=== PATIENT | female | born 1985 | race Caucasian/White ===

== ENCOUNTER 2018-12-03 09:24 | Emergency (ER) | payer OTHER, MEDICAID, SELFPAY ==
[2018-12-03 09:42] VITALS: BP 118/72; PULSE 90; RESP 12; TEMP 36.6; O2SAT 100
--- NOTE | 2018-12-03 09:58 | ED_ITS ---
HPI - Abdominal Pain General Chief Complaint: Abdominal Pain Stated Complaint: 99% sure has a stomach ulcer Time Seen by Provider: 12/03/18 09:32 Source: patient Mode of arrival: Ambulatory History of Present Illness HPI narrative: Patient is a 33-year-old female who presents with ?I have a stomach ulcer.She had an ulcer 2 years ago and this feels similar. She does take omeprazole 40 mg once a day. However with an ovarian cyst and back pain she has been taking Tylenol, naproxen and ibuprofen certainly more frequently than normal. Every time she eats or drinks anything her stomach becomes painful. She is not vomiting although she feels very nauseous this morning. Unable take any of her pills. She is not having any black stool. She has left upper quadrant pain. MD complaint: abdominal pain Related Data Previous Rx's Medication Instructions Recorded cephalexin [Keflex] 500 mg PO BID #13 cap 03/14/17 omeprazole 40 mg PO BID #28 cap 12/03/18 ondansetron 4 mg PO Q8H PRN #10 tab 12/03/18 Allergies Allergy/AdvReac Type Severity Reaction Status Date / Time diphenhydramine Allergy Mild Verified 12/03/18 09:48 [From BENADRYL] Sulfa (Sulfonamide Allergy Mild Verified 12/03/18 09:48 Antibiotics) [SULFA (SULFONAMIDE ANTIBIOTICS)] Review of Systems Review of Systems Narrative: GENERAL: Denies chills, fatigue, malaise, fever, sweats, travel HEENT: Denies sinus pain, ear pain, sore throat, difficulty swallowing, neck pain RESPIRATORY: Denies dyspnea, cough, wheezing, hemoptysis, sputum. CARDIOVASCULAR: Denies chest pain, palpitations, orthopnea, edema GASTROINTESTINAL: See HPI : Denies dysuria, frequency, incontinence, hematuria, urinary retention, flank pain. MUSCULOSKELETAL: Denies weakness, joint pain, or bony pain SKIN: No rash, no erythema, no pruritus NEUROLOGIC: Denies weakness, dizziness, headache, numbness, change in speech, confusion PSYCHIATRIC: No concerning psychosocial issues. 12 point review of systems is negative except for those stated above and HPI FORMERLY [facility], [facility] Medical History Hemorrhagic ovarian cyst (Acute) Social History (Updated 12/03/18 @ 10:15 by Nandini Feliz DO) marital status: Smoking Status: Never smoker Social History marital status: Smoking Status: Never smoker Exam Initial Vital Signs Initial Vital Signs: Vital Signs Temperature 98 F 12/03/18 09:42 Pulse Rate 90 12/03/18 09:42 Respiratory Rate 12 12/03/18 09:42 Blood Pressure 118/72 12/03/18 09:42 Pulse Oximetry 100 12/03/18 09:42 GENERAL: Well-appearing, well-nourished and in no acute distress. HEENT: Head atraumatic,EOMI, pupils reactive, face symmetric, moist mucous membranes CARDIOVASCULAR: Regular rate and rhythm without murmurs, rubs or gallops. RESPIRATORY: Breath sounds equal bilaterally, no wheezes rales or rhonchi. ABDOMEN: Soft, mild left upper quadrant tenderness no guarding no rebound EXTREMITIES: Normal range of motion, no clubbing or edema. Neurovascularly intact NEUROLOGICAL: Alert and oriented x4.Normal gait and speech. SKIN: Warm, dry, no laceration, no petechiae, no rashes or lesions. Course Orders Ordered: ED Orders 12/03/18 10:40 Complete Blood Count AUTO DIFF Stat Comprehensive Metabolic Panel Stat Lipase Stat Discontinued Medications Sodium Chloride (Normal Saline 0.9%) 1,000 mls @ 1,000 mls/hr IV BOLUS ONE Stop: 12/03/18 11:04 Last Infusion: 12/03/18 12:24 Dose: 0 mls/hr Documented by: Admin: 12/03/18 11:03 Dose: 1,000 mls/hr Documented by: JARRET Ondansetron HCl (Zofran) 4 mg IV NOW ONE Stop: 12/03/18 10:06 Last Admin: 12/03/18 11:03 Dose: 4 mg Documented by: [email or web address] Pantoprazole Sodium (Protonix) 40 mg IV NOW ONE Stop: 12/03/18 10:06 Last Admin: 12/03/18 11:03 Dose: 40 mg Documented by: JARRET Vital Signs Vital signs: Vital Signs - 8 hr 12/03/18 09:42 12/03/18 12:21 Temperature 98 F Pulse Rate 90 73 Respiratory Rate 12 16 Blood Pressure 118/72 Blood Pressure [Left Arm] 112/62 Pulse Oximetry 100 100 MDM - Abdominal Pain Lab Data Attestation: I reviewed the patient's lab results. Result diagrams: 12/03/18 10:40 12/03/18 10:40 Labs: Lab Results 12/03/18 12/03/18 Range/Units 10:40 10:40 WBC 7.3 (4.5-11.0) X10^3/uL RBC 4.62 (4.0-5.2) X10^6/uL Hgb 14.7 (12.0-16.0) g/dL Hct 42.9 (36-46) % MCV 92.8 (80-100) fL MCH 31.8 (26-34) PG MCHC 34.2 (30-36) % RDW 12.2 (11.6-14.8) % Plt Count 205 (150-400) X10^3/uL Neut % (Auto) 80.7 H (50-75) % Lymph % (Auto) 12.8 L (25-40) % Stanley % (Auto) 5.8 (3-14) % Eos % (Auto) 0.4 L (2-4) % Baso % (Auto) 0.3 (0-2) % Neut # (Auto) 5900 (4243-0890) /uL Lymph # (Auto) 900 L (1894-3668) /uL Stanley # (Auto) 400 (0-900) /uL Eos # (Auto) 0 (0-450) /uL Baso # (Auto) 0 (0-100) /uL Sodium 144 (137-145) mmol/L Potassium 3.6 (3.4-5.1) mmol/L Chloride 105 (98-107) mmol/L Carbon Dioxide 28 (22-32) mmol/L BUN 12 (7-17) mg/dL Creatinine 0.60 (0.52-1.04) mg/dL Estimated GFR > 60.0 (>60) mL/min BUN/Creatinine Ratio 20.0 (6-22) Glucose 91 (70-100) mg/dL Calcium 10.2 (8.4-10.2) mg/dL Total Bilirubin 0.7 (0.2-1.3) mg/dL AST 23 (14-36) IU/L ALT 21 (9-52) IU/L Alkaline Phosphatase 39 (38-126) U/L Total Protein 7.8 (6.3-8.2) g/dL Albumin 4.6 (3.5-5.0) g/dL Globulin 3.2 (1.7-4.1) g/dL Albumin/Globulin Ratio 1.4 (1.0-2.8) Lipase 37 (23-300) U/L Point of care testing: Point of Care Testing Test Results Negative Urine Dip Bedside Urine Glucose Negative Bedside Urine Bilirubin - Negative Bedside Urine Ketone +/- 5 Urine Specific [place] 1.010 Bedside Urine Occult Blood - Negative Bedside Urine pH 8.5 Bedside Urine Protein +/- 15 Bedside Urine Urobilinogen - Negative Bedside Urine Nitrite - Negative Bedside Urine Leukocytes - Negative Esterase MDM Narrative Medical decision making narrative: Patient overall is feeling significantly better after Protonix and IV fluids. She states Zofran helped a lot. Recommended omeprazole twice a day is for about 2 weeks. Discharge Plan Departure Patient Disposition: Home Clinical Impression: Gastric ulcer Qualifiers: Gastric ulcer chronicity: acute Gastric ulcer complication status: without hemorrhage or perforation Qualified Code(s): K25.3 - Acute gastric ulcer without hemorrhage or perforation Discharge Date/Time: 12/03/18 12:34 Instructions: Gastric Ulcer Activity Restrictions/Additional Instructions: *You have been diagnosed with gastric ulcer *What to do: Avoid all NSAIDs including naproxen, ibuprofen, Aleve, Advil, ketorolac etc *Continue to take medications as directed Omeprazole 40 mg twice a day for 2 weeks 30 minutes before eating Zofran 4 mg every 8 hours if needed for nausea vomiting Tylenol 1000 mg every 6 hours if needed for pain *Follow up with your primary care provider in 2-3 days *Return to ER if you should have increasing pain, black stools, vomiting blood or any new, worsening or concerning symptoms Prescriptions: New omeprazole 40 mg capsule,delayed release(DR/EC) 40 mg PO BID Qty: 28 RF: 0 ondansetron 4 mg tablet,disintegrating 4 mg PO Q8H PRN (Reason: nausea and vomiting) Qty: 10 RF: 0 No Action cephalexin [Keflex] 500 MG capsule 500 mg PO BID Qty: 13 RF: 0
[2018-12-03 10:58] LABS: Add Manual Diff / Slide Review NO; Basophils Absolute Auto 0 /uL (0-100); Basophils Percent Auto 0.3 % (0-2); Eosinophils Absolute Auto 0 /uL (0-450); Eosinophils Percent Auto 0.4 % (2-4); Hematocrit 42.9 % (36-46); Hemoglobin 14.7 g/dL (12.0-16.0); Lymphocytes Absolute Auto 900 /uL (1100-4500); Lymphocytes Percent Auto 12.8 % (25-40); Mean Corpuscular HGB Conc 34.2 % (30-36); Mean Corpuscular Hemoglobin 31.8 PG (26-34); Mean Corpuscular Volume 92.8 fL (80-100); Monocytes Absolute Auto 400 /uL (0-900); Monocytes Percent Auto 5.8 % (3-14); Neutrophils Absolute Auto 5900 /uL (1500-7000); Neutrophils Percent Auto 80.7 % (50-75); Platelet Count 205 X10^3/uL (150-400); Red Blood Cell Count 4.62 X10^6/uL (4.0-5.2); Red Cell Distribution Width 12.2 % (11.6-14.8); White Blood Cell Count 7.3 X10^3/uL (4.5-11.0)
[2018-12-03] MEDS: ONDANSETRON 4 MG/2 ML INJ IV (11:03)
[2018-12-03] MEDS: PANTOPRAZOLE 40 MG VIAL IV (11:03)
[2018-12-03] MEDS: SODIUM CHLORIDE 0.9% 1,000 ML 1000 ML IV (11:03)
[2018-12-03 11:06] LABS: Alanine Aminotransferase 21 IU/L (9-52); Albumin 4.6 g/dL (3.5-5.0); Albumin Globulin Ratio 1.4 (1.0-2.8); Alkaline Phosphatase 39 U/L (38-126); Aspartate Aminotransferase 23 IU/L (14-36); Bilirubin Total 0.7 mg/dL (0.2-1.3); Blood Urea Nitrogen 12 mg/dL (7-17); Calcium 10.2 mg/dL (8.4-10.2); Carbon Dioxide 28 mmol/L (22-32); Chloride 105 mmol/L (98-107); Estimated Glomerular Filt Rate > 60.0 mL/min (>60); Globulin 3.2 g/dL (1.7-4.1); Glucose 91 mg/dL (70-100); HEMOLYSIS < 15 (0-50); Lipase 37 U/L (23-300); Potassium 3.6 mmol/L (3.4-5.1); Sodium 144 mmol/L (137-145); Total Protein 7.8 g/dL (6.3-8.2)
[2018-12-03 12:21] VITALS: BP 112/62; PULSE 73; RESP 16; O2SAT 100
== END 2018-12-03 12:34 | disposition home or self-care (01) ==
PROVIDERS: Emergency Provider Emergency Medicine
DX: K25.3 Acute gastric ulcer without hemorrhage or perforation (principal)
CPT/HCPCS: 36415; 80053; 81003; 81025; 83690; 85025; 96361; 96374; 96375; 99283; 99284; C9113; J2405

== ENCOUNTER 2019-04-30 13:07 | Emergency (ER) | payer OTHER, SELFPAY ==
[2019-04-30 13:17] VITALS: BP 108/65; PULSE 86; RESP 16; TEMP 37.1; O2SAT 99; BMI 24.5
--- NOTE | 2019-04-30 13:27 | ED_ITS ---
HPI - Back Pain/Injury General Chief Complaint: Back Pain/Injury Stated Complaint: sciatica pain Time Seen by Provider: 04/30/19 13:17 Source: patient Mode of arrival: Ambulatory Limitations: no limitations History of Present Illness HPI Narrative: 34-year-old female here for evaluation of left-sided back pain. She has had back pain in the past secondary to giving . Has use muscle relaxers and Voltaren cream and she states this has helped her. She has been symptom-free for several weeks. This morning was at work. 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 No urinary symptoms. No fevers. Has had pain with walking. Did take some Tylenol and Aleve prior to arrival. Related Data Home Medications Medication Instructions Recorded Confirmed acetaminophen 500 mg tablet 1,000 mg PO QID PRN 12/29/18 12/29/18 valacyclovir 500 mg tablet 500 mg PO DAILY 12/29/18 12/29/18 Previous Rx's Medication Instructions Recorded cyclobenzaprine 10 mg tablet 10 mg PO BID PRN #60 tab 12/29/18 diclofenac sodium 1 % topical gel 2 gram TOP QID #100 gram 12/29/18 omeprazole 20 mg capsule,delayed 20 mg PO DAILY #90 cap 12/29/18 release cyclobenzaprine 10 mg PO TID PRN #12 tab 04/30/19 diclofenac sodium 2 gram TOP QID #100 gram 04/30/19 Allergies Allergy/AdvReac Type Severity Reaction Status Date / Time diphenhydramine Allergy Mild Verified 12/29/18 08:36 [From BENADRYL] Sulfa (Sulfonamide Allergy Mild Verified 12/29/18 08:36 Antibiotics) [SULFA (SULFONAMIDE ANTIBIOTICS)] Review of Systems Constitutional Constitutional: Denies fever(s) and Denies headache(s) ENT Ears, Nose, Mouth, and Throat: Denies headache(s) Cardiovascular Cardiovascular: Denies chest pain and Denies dyspnea Respiratory Respiratory: Denies dyspnea Gastrointestinal Gastrointestinal: Denies abdominal pain Genitourinary Genitourinary: Denies dysuria and Denies urinary incontinence Musculoskeletal Musculoskeletal: Reports back pain Integumentary/Breasts Skin/Breast: Denies rash Neurologic Neurologic: Denies behavioral changes and Denies headache(s) Psychiatric Psychiatric: Denies behavioral changes Hematologic/Lymphatic Hematologic/Lymphatic: Denies easy bleeding and Denies easy bruising Patient History Medical History Abnormal Pap smear of cervix (Inactive ~2012) Asthma (Chronic ~1990) Hemorrhagic ovarian cyst (Acute) Herpes (Inactive ~2009) Low back strain (Acute) Ovarian cyst (Chronic ~2012) Ulcer (Acute) Surgical History (Updated 01/01/19 @ 19:38 by Caroline Whitten) Anesthesia (Resolved) History of section (Resolved) [place] teeth removed (Resolved ~2003) Family History (Updated 01/01/19 @ 19:43 by Caroline Whitten) Father DDD (degenerative disc disease) Mother Osteoarthritis Osteoporosis Fibromyalgia Asthma Hyperlipidemia Brother Crohn's disease Brother Transgender Mental health problem Sister DDD (degenerative disc disease) Crohn's disease Hypertension Sister Diabetes mellitus Hyperlipidemia Grandmother History of heart disease Hyperlipidemia Hypertension Social History marital status: Smoking Status: Never smoker second hand exposure: No alcohol intake: current (a glass of wine once a month) substance use type: marijuana (smoke, every night) Smoking Status: Never smoker Substance Use Type: does not use Exam Initial Vital Signs Initial Vital Signs: Vital Signs Temperature 98.8 F 04/30/19 13:17 Pulse Rate 86 04/30/19 13:17 Respiratory Rate 16 04/30/19 13:17 Blood Pressure 108/65 04/30/19 13:17 Pulse Oximetry 99 04/30/19 13:17 Const General: cooperative and comfortable Limitations: mental status not altered HENMT Head: normal to inspection and normocephalic Resp Effort & Inspection: normal respiratory effort Auscultation: clear to auscultation bilaterally Cardio Rate: regular rate Rhythm: regular rhythm GI Inspection: non-distended Palpation: soft and No firm Back/Spine/Pelvis Thoracic/Lumbar Spine: paraspinal tenderness (Left), No thoracic spinal tenderness and No lumbar spinal tenderness Neuro General: alert and awake Cognition: normal cognition Speech: speech normal Extrem General: normal to inspection and capillary refill normal Psych Appearance: grossly normal and well kempt Course Orders Ordered: Discontinued Medications Ketorolac Tromethamine (Toradol) 30 mg IM NOW ONE Stop: 04/30/19 13:29 Vital Signs Vital signs: Vital Signs - 8 hr 04/30/19 13:17 Temperature 98.8 F Pulse Rate 86 Respiratory Rate 16 Blood Pressure 108/65 Pulse Oximetry 99 MDM - Back Pain/Injury MDM Narrative Medical decision making narrative: Patient with history and physical exam consistent with musculoskeletal back pain. Low suspicion for cauda equina. Was given Toradol here in the ER. Will send home with symptom treatment. She was given return precautions and follow-up instructions. She expressed understanding and agreement plan. Discharge Plan Departure Patient Disposition: Home Clinical Impression: Low back strain Instructions: DI for Low Back Pain, DI for Back Strain or Sprain Activity Restrictions/Additional Instructions: Take the medications as directed. Contact your primary provider for follow-up. Return to the emergency department for any new or worsening symptoms. Your prescriptions were electronically transmitted to [facility] in [place] Prescriptions: New cyclobenzaprine 10 mg tablet 10 mg PO TID PRN (Reason: muscle spasm) Qty: 12 RF: 0 diclofenac sodium 1 % gel 2 gram TOP QID Qty: 100 RF: 0 No Action valacyclovir 500 mg tablet 500 mg PO DAILY RF: 0 acetaminophen [Tylenol Extra Strength] 500 mg tablet 1,000 mg PO QID PRNRF: 0 diclofenac sodium 1 % gel 2 gram TOP QID Qty: 100 RF: 0 cyclobenzaprine 10 mg tablet 10 mg PO BID PRN (Reason: muscle spasm) Qty: 60 RF: 0 omeprazole 20 mg capsule,delayed release(DR/EC) 20 mg PO DAILY Qty: 90 RF: 0 Stand Alone Forms: Work Release Note
[2019-04-30] MEDS: KETOROLAC 60 MG/2 ML VIAL 30 MG IM (13:55)
== END 2019-04-30 14:05 | disposition home or self-care (01) ==
PROVIDERS: Emergency Provider Emergency Medicine
DX: S39.012A Strain of muscle, fascia and tendon of lower back, initial encounter (principal); Y99.0 Civilian activity done for income or pay
CPT/HCPCS: 96372; 99283; J1885